=== PATIENT | male | born 1980 | race Hispanic/Latino ===

== ENCOUNTER 2017-05-14 18:53 | Emergency (ER) | payer SELFPAY ==
[2017-05-14] MEDS ORDERED: KETOROLAC TROMETHAMINE 30MG/ML ONE (19:50)
== END 2017-05-14 20:10 | disposition home or self-care (01) ==
LOC: EDH 18:53
DX: S83.91XA Sprain of unspecified site of right knee, initial encounter (principal); X50.0XXA Overexertion from strenuous movement or load, initial encounter; Y93.01 Activity, walking, marching and hiking; Y92.098 Other place in other non-institutional residence as the place of occurrence of the external cause; Y99.8 Other external cause status
CPT/HCPCS: 29505; 73562; 96372; 99284; J1885